=== PATIENT | male | born 1990 | race African-American/Black ===

== ENCOUNTER 2024-11-24 18:33 | Emergency (ER) | payer OTHER, SELFPAY ==
--- NOTE | ~2024-11-24 | XR_ITS ---
XR finger 4th LT min 2V Ordering provider: Dax Crain MD History: . injury . Comparison: None. FINDINGS: BONES: No acute fracture or dislocation. JOINT SPACES: Normal. SOFT TISSUES: Normal. IMPRESSION: No acute osseous abnormality. Reviewed, dictated and finalized at location A.
[2024-11-24 18:38] VITALS: BP 175/107; PULSE 105; RESP 16; TEMP 36.3; O2SAT 97
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
[2024-11-24 19:30] VITALS: BP 137/76; PULSE 76; RESP 16; TEMP 36.6; O2SAT 98
== END 2024-11-24 20:00 | disposition home or self-care (01) ==
PROVIDERS: Emergency Provider Emergency Medicine
DX: S63.615A Unspecified sprain of left ring finger, initial encounter (principal); Y04.0XXA Assault by unarmed brawl or fight, initial encounter
CPT/HCPCS: 29130; 73140; 99283